=== PATIENT | male | born 1995 | race Caucasian/White ===

== ENCOUNTER → 2022-09-21 | Emergency (ER) | payer MEDICAID | END | disposition left against medical advice (07) | LOC: ER 22:32 | DX: R53.1 Weakness (principal); Z53.21 Procedure and treatment not carried out due to patient leaving prior to being seen by health care provider ==

== ENCOUNTER 2023-01-04 21:19 | Emergency (ER) | payer MEDICAID ==
[~2023-01-04] VITALS: Ht 182.9 cm; Wt 79.5 kg
[2023-01-04 21:55] VITALS: BP 124/63; PULSE 87; RESP 16; O2SAT 100
[2023-01-05] MEDS ORDERED: IBUPROFEN 800 MG TAB PO ONE (00:45)
== END 2023-01-05 00:43 | disposition home or self-care (01) ==
LOC: ER 21:19
DX: S39.82XA Other specified injuries of lower back, initial encounter (principal); F17.210 Nicotine dependence, cigarettes, uncomplicated; F15.90 Other stimulant use, unspecified, uncomplicated; Y04.2XXA Assault by strike against or bumped into by another person, initial encounter; Y93.89 Activity, other specified; Y92.89 Other specified places as the place of occurrence of the external cause; Y99.8 Other external cause status